=== PATIENT | female | born 1990 ===

== ENCOUNTER 2017-05-15 17:01 | Emergency (ER) | payer BC, MEDICAID ==
--- NOTE | 2017-05-15 17:38 | C.PDOC ---
History Of Present Illness 26 year old female presents to the emergency following a seizure which occurred four days ago. Came to the ER today for this seizure due to the fact that she could not find a ride and babysitting for her kids. Patient believes that it is due to increased stress at her workplace. Reports that she has had two prior seizures, one while she was in college and one during an epidural injection she received for her second . Patient denies being administered seizure medicine before, and seeks a prescription. Patient is currently 8 weeks /M1 with a recent normal ultrasound. Patient confirms nausea and vomiting prior to her seizure, stating that it is worse in her current than ever before. Admits to occasional cannabis use for nausea contorl. Patient denies abdominal pain and vaginal discharge. Time Seen by Provider: 05/15/17 17:32 Chief Complaint (Nursing): Seizure History Per: Patient History/Exam Limitations: no limitations Recent Seizure Activity Began: Days Ago: (4) Number Of Seizures: One Precipitating Factor(s): Other (stress due to work or recent related nausea and vomiting) Past Medical History Reviewed: Historical Data, Nursing Documentation, Vital Signs Vital Signs: Last Vital Signs Temp 97.0 F L 05/15/17 18:20 Pulse 62 05/15/17 18:20 Resp 20 05/15/17 18:20 BP 111/69 05/15/17 18:20 Pulse Ox 100 05/15/17 19:06 - Medical History PMH: No Chronic Diseases Surgical History: Tonsillectomy (7 yrs old) Family History: States: No Known Family Hx - Social History Hx Tobacco Use: No Hx Alcohol Use: Yes Hx Substance Use: No - Immunization History Hx Influenza Vaccination: No Hx Pneumococcal Vaccination: No Review Of Systems Except As Marked, All Systems Reviewed And Found Negative. Gastrointestinal: Positive for: Nausea, Vomiting. Negative for: Abdominal Pain Genitourinary: Negative for: Vaginal Discharge Physical Exam - Physical Exam Appears: Well, Non-toxic Head: Atraumatic, Normacephalic Eye(s): bilateral: Normal Inspection Ear(s): Bilateral: Normal Nose: Normal Oral Mucosa: Moist Tongue: Normal Appearing Neck: Normal, Supple Chest: Symmetrical Cardiovascular: Rhythm Regular Respiratory: Normal Breath Sounds Gastrointestinal/Abdominal: Normal Exam Neurological/Psych: Oriented x3, Normal Speech, Normal Cognition, Other (awake and alert) ED Course And Treatment - Laboratory Results Result Diagrams: 05/15/17 18:07 05/15/17 18:07 Lab Interpretation: Abnormal (ua wnl, tox + THC, etoh neg) Urine POC: Positive O2 Sat by Pulse Oximetry: 100 (RA) Pulse Ox Interpretation: Normal Progress Note: zofran, pepcid, IVF, tylenol PO Reevaluation Time: 18:59 Reassessment Condition: Improved Medical Decision Making Medical Decision Making: Plan: * EKG * Bloodwork * Urinalysis * IV Fluids * Pepcid 20mg IVP * Tylenol 975mg PO * Zofran 4mg PO early , hyperemesis gravidarum cannabis use in underlying seizure disorder, prob provoked by stress @ work Desires to restart seizure meds during and understands this would not guarantee seizure-free eval NOT repeated as recently assesed as wnl @ 10 wks. Disposition Doctor Will See Patient In The: Office Counseled Patient/Family Regarding: Studies Performed, Diagnosis - Disposition Referrals: Kev Torres MD [Staff Provider] - Disposition: HOME/ ROUTINE Disposition Time: 19:01 Condition: GOOD Additional Instructions: avoid stresses which may provoke seizures- as reviewed in your ED visit Call to follow-up with Dr Torres- Neurology- she is a seizure expert and will be able to best guide you. Pepcid 20 mg @ night to lower stomach acid (higher during and nausea) Zofran ODT 4 mg once every 6-8 hours as needed for nausea/vomiting diet changes to help with your chronic nausea. Return to ED or our Family Practice [facility] as needed. Prescriptions: Ondansetron ODT [Zofran ODT] 4 mg PO Q8H PRN #8 odt PRN Reason: nausea vomiting Instructions: Hyperemesis Gravidarum, Medications and , Seizures, Adult (DC) Forms: [employer] (Maori) - Clinical Impression Clinical Impression: Seizure, , Hyperemesis gravidarum - Scribe Statement The provider has reviewed the documentation as recorded by the Scribe (Jayant Landon) Provider Attestation: All medical record entries made by the Scribe were at my direction and personally dictated by me. I have reviewed the chart and agree that the record accurately reflects my personal performance of the history, physical exam, medical decision making, and the department course for this patient. I have also personally directed, reviewed, and agree with the discharge instructions and disposition.
[2017-05-15] MEDS ORDERED: Sodium Chloride 0.9% 1,000 ML IV ONE (17:48)
[2017-05-15 18:20] LABS: BASO % 0.4 % (0.0-2.0); EOS % 0.5 % (0.0-4.0); HEMOGLOBIN 12.9 g/dL (11.0-16.0); LYMPH # 1.9 K/uL (1.0-4.3); LYMPH % 21.1 % (20.0-40.0); MEAN CELL VOLUME 82.6 fL (81.0-99.0); MEAN CORPUSCULAR HEMOGLOBIN 27.4 pg (27.0-31.0); MEAN CORPUSCULAR HGB CONC 33.2 g/dL (33.0-37.0); MONO # 0.7 K/uL (0.0-0.8); MONO % 7.7 % (0.0-10.0); NEUT # 6.3 K/uL (1.8-7.0); NEUT % 70.3 % (50.0-75.0); RBC 4.72 Mil/uL (3.80-5.20); RED CELL DISTRIBUTION WIDTH 15.1 % (11.5-14.5); WHITE BLOOD COUNT 8.9 K/uL (4.8-10.8)
[2017-05-15 18:21] LABS: HCG,QUALITATIVE URINE POSITIVE (NEGATIVE)
[2017-05-15 18:25] LABS: SQUAMOUS EPITHIAL 46 /hpf (0-5); URINE BACTERIA OCC (<OCC); URINE BILIRUBIN NEGATIVE (NEGATIVE); URINE BLOOD NEGATIVE (NEGATIVE); URINE CLARITY Hazy (Clear); URINE GLUCOSE (UA) NORMAL (Normal); URINE LEUKOCYTE ESTERASE TRACE Leu/uL (Negative); URINE PROTEIN 2+ mg/dL (NEGATIVE)
[2017-05-15 18:27] LABS: URINE COLOR YELLOW (YELLOW)
[2017-05-15 18:42] LABS: BARBITURATES, UR NEGATIVE (NEGATIVE); BENZODIAZEPINES, UR NEGATIVE (NEGATIVE); OPIATES, UR NEGATIVE (NEGATIVE); PHENCYCLIDINE, UR NEGATIVE (NEGATIVE)
[2017-05-15 18:55] LABS: ALB/GLOB RATIO 1.2 (1.0-2.1); ALBUMIN 4.2 g/dL (3.5-5.0); ALT/SGPT 14 U/L (9-52); AST/SGOT 14 U/L (14-36); BLOOD UREA NITROGEN 6 mg/dL (7-17); CALCIUM 8.5 mg/dl (8.6-10.4); GFR AFRICAN-AMERICAN > 60; GFR NON-AFRICAN AMERICAN > 60
[2017-05-15 19:01] VITALS: O2SAT 100
[2017-05-15 19:48] VITALS: BP 107/58; PULSE 63; RESP 16; TEMP 98.1
== END 2017-05-15 19:49 | disposition home or self-care (01) ==
LOC: C.ER 17:01
DX: O21.0 Mild hyperemesis gravidarum (principal); O26.891 Other specified pregnancy related conditions, first trimester; Z3A.08 8 weeks gestation of pregnancy; R56.9 Unspecified convulsions
CPT/HCPCS: 80053; 81001; 84703; 85025; 96361; 96374; 99285; G0480; J7040

== ENCOUNTER 2017-12-18 08:21 | Inpatient (IN) | payer BC, MEDICAID ==
[2017-12-18] MEDS ORDERED: Lactated Ringer's 1,000 ML IV ONE (08:36)
[2017-12-18 08:38] VITALS: BMI 27.4
[2017-12-18] MEDS ORDERED: cefOXitin IV 1 gm in Dextrose 1 GM/50 ML BAG IVPB SCH (08:45)
[2017-12-18] MEDS ORDERED: cefOXitin IV 2 gm in Saline 2 GM/50 ML BAG IVPB ONE (09:01)
[2017-12-18 09:08] LABS: BASO % 0.4 % (0.0-2.0); EOS # 0.1 K/uL (0.0-0.7); HEMOGLOBIN 10.9 g/dL (11.0-16.0); LYMPH # 2.5 K/uL (1.0-4.3); MEAN CELL VOLUME 77.4 fL (81.0-99.0); MEAN CORPUSCULAR HGB CONC 32.3 g/dL (33.0-37.0); MEAN PLATELET VOLUME 9.4 fL (7.2-11.7); MONO # 0.7 K/uL (0.0-0.8); MONO % 8.5 % (0.0-10.0); NEUT # 5.4 K/uL (1.8-7.0); NEUT % 62.1 % (50.0-75.0); NRBC % 0.1 % (0.0-2.0); RBC 4.35 Mil/uL (3.80-5.20); RED CELL DISTRIBUTION WIDTH 19.4 % (11.5-14.5); WHITE BLOOD COUNT 8.8 K/uL (4.8-10.8)
[2017-12-18] MEDS ORDERED: Oxytocin 20 units in LR 2,000 ML IV ONE (09:17)
[2017-12-18] MEDS ORDERED: Oxytocin 10 Units/ml Inj ONE (09:17)
--- NOTE | 2017-12-18 09:19 | OBHP ---
Datetime: 12/18/2017 08:53 IP Adm Impression: Term, intrauterine ; No Active Labor; Ruptured Membranes IP Adm Impression Other: Prev C/S; multiparity desire permanent sterilization IP Admit Plan: Admit to unit; Initiate Section protocol Admit Comment, IP Provider: Patient seen and evaluated at 0818 hours. 27 y.o. , LMP 03/02/17, GEETA 12/28/17, EGA 38w 4d prev C/S x 2 c/o SROM approximately 0715 h ours; clear. No VB. (+) mild Ctx, pain scale 5/10 has had approx 3 since ROM. (+) AFM. : car roberta initiated with PMD, Dr. Gerardo Jones (>7); due to insurance issues, switched to clinic care at [facility] (1 visit); was scheduled for 12/19/17. Anemia, Vit D insufficiency. Treated for UTI x 1, early in P Ob: C/S x 2, both males, both at [facility]. 2016, 7lb 11oz, precipited by seizure activity S /P epidural. 2017, 9lb 2oz, elective repeat, no GDM. No other complications. 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 Denies h/o abnormal Pap, STIs, leiomyoma or ovarian cysts PMH: Vit D insufficiency, anemia PSH: Age 5 - tonsillectomy, C/S x 2; D_C x 1 NKDA No food allergies Meds: PNV, iron and Vit D 1,000IU - each once a day Soc Hx: denies tobacco, illicit drug, or EtOH use. x 3 years; together 7 years. Works as a [employer] Fam Hx: Mother age 24 - pneumonia. Father approx 40+ y.o. - Pt has no contact. no known fam h/o cancer P.E.: as above. WD in NAD. Awake, alert, oriented to time, person and place. Pleasant and cooperat carey Assessment: 27 y.o. P2012, prev C/S x 2, SROM - confirmed. Desires permanent sterilization - conse nt signed 11/07/17; reaffirmed. Reviewed R/B/C of repeat C/S and permanent sterilization; no question s offered. Consents signed, dated, witnessed and placed in chart. Category 1 tracing. Patient last at e at 0200 hours; will observe 8 hours NPO. Patient is clinically stable. Plan: 1) Admit 2) NPO 3)Admission labs, incl T_C 4) Continous EFM 5) IVFs 6) Pina 7) Abdominal prep and shave 8) Notify anesthesia 9) Notify peds 10) Mefoxin, electronics commodity manager to O.R. 11) Patient electronics commodity manager to O.R. Pelvic Type - PN: Adequate Extremities - PN: Normal Abdomen - PN: Normal Back - PN: Normal Breast - PN: Not Done Lungs - PN: Normal Heart - PN: Normal Thyroid - PN: Normal Neurologic - PN: Normal HEENT - PN: Normal General - PN: Normal Presentation-Admit: Vertex FHR - Baseline A Provider: 125 Contraction Comments Provider: irregular Comments, ACOG Physical Exam: Abdomen: Gravid. Soft. Non tender. Healed Pfannenstiel incision Perneum : wet, clear fluid seen running over perineum. nitrazine (+) All other systems reviewed and are negaitve Gestation - Est Wks by US: 38w 4d IP Hx Assessment: The History has been Reviewed and is Current EGA AdmitDate IP: 38.4 Vital Signs Provider: Reviewed IP Chief Complaint: Suspected ruptured membranes NICHD Variability Prov Fetus A: Moderate 6-25bpm NICHD Accel Fetus A IP Provider: [id number] FHR Category Provider Fetus A: Category I NICHD Decel Fetus A IP Provider: None Dilatation, Provider: 2 Effacement, Provider: 40 Station, Provider: 0 Genitourinary Exam: Normal DTRs - PN: Not Done
[2017-12-18] MEDS ORDERED: Sodium Citrate/Citric Acid 15 ml Sol PO ONE (09:30)
[2017-12-18 09:36] LABS: ALBUMIN 3.6 g/dL (3.5-5.0); ALT/SGPT 10 U/L (9-52); AST/SGOT 18 U/L (14-36); BLOOD UREA NITROGEN 7 mg/dL (7-17); CALCIUM 8.9 mg/dl (8.6-10.4); GFR NON-AFRICAN AMERICAN > 60
[2017-12-18] MEDS ORDERED: Oxycodone/Acetaminophen 5/325 mg Tab PO PRN (10:04)
[2017-12-18] MEDS ORDERED: Morphine 1 mg/ml preservative-free Inj(Duramorph) ONE (10:07)
[2017-12-18] MEDS: Lactated Ringer's 1,000 ML IV SCH ×2 (10:55→16:23)
[2017-12-18] MEDS ORDERED: DiphenhydrAMINE 50 mg/ml Inj IVP PRN (12:44)
--- NOTE | 2017-12-18 12:51 | PCM.SURG1 ---
Surgeon's Initial Post Op Note - Surgeon's Notes Surgeon: Terra Chicas MD Emergency Medical Dispatcher: Adele Leary DO, PGY-2 Type of Anesthesia: Spinal Anesthesia Administered By: Noris Smith MD Pre-Operative Diagnosis: 38 weeks gestation, previous C/S x 2, Spontaneous ROM; multiparity, desiring permanent sterilization Operative Findings: Live female , LOT, weight 7lb 2oz, 's 9/9; cord pH 7.34. Pelvic adhesions - lower uterine segmental to anterior abdominal wall. Normal, uterus; normal fallopian tubes and ovaries, bilaterally Post-Operative Diagnosis: Same; pelvic adhesions Operation Performed: Repeat LTCS; modified Filipe procedure; lysis of adhesions Specimen/Specimens Removed: Segment of fallopian tubes, bilaterally Estimated Blood Loss: EBL {In ML}: 600 (800 ml clear urine; 1600 mL LR) Blood Products Given: N/A Drains Used: No Drains Post-Op Condition: Good Date of Surgery/Procedure: 12/18/17 Time of Surgery/Procedure: 12:30
[2017-12-18 13:22] LABS: SQUAMOUS EPITHIAL < 1 /hpf (0-5); URINE BILIRUBIN NEGATIVE (NEGATIVE); URINE BLOOD NEGATIVE (NEGATIVE); URINE CLARITY Clear (Clear); URINE COLOR Yellow (YELLOW); URINE GLUCOSE (UA) NORMAL (Normal); URINE LEUKOCYTE ESTERASE NEG Leu/uL (Negative); URINE PROTEIN NEGATIVE (NEGATIVE)
--- NOTE | 2017-12-18 14:10 | OBDS ---
DELIVERY PERSONNEL Delivery Doctor: Priya Chicas MD Scrub Nurse: Ashley Reinoso Professor Of Chemical Engineering: Lauren Ureña RN Anesthesiologist: carlos Resident: Callum Leary MATERNAL INFORMATION Delivery Anesthesia: Spinal Medications in Delivery: PITOCIN, SURGICEL Estimated Blood Loss (ml): 600 Placenta Cultured: No Maternal Complications: None; Other Other Maternal Complications: H/O anemia and low Vitamin D RN Comments: RC/SECTION to a live baby girl, attended to by dr. Rutledge and Fritz Rn. 9:9 . stable, skin to skin initiated. Provider Comments: Uncomplicated repeat LTCS, lysis of adhesions, with atraumatic delivery of live f emale infant. LOT, weight 7lb 2oz, 's 9/9; cord pH 7.34. Uncomplicated modified Filipe procedur e performed for permanent sterilization. Hemostasis assured throughout the procedure. Patient tolerated procedure well. She and in stable condition. LABOR SUMMARY EDC: 12/28/2017 00:00 No. Babies in Womb: 1 Attempted: No Labor Anesthesia: None LABOR INFORMATION Reason for Induction: Not Applicable Oxytocin: N/A Group B Beta Strep: Not Done Antibiotics # of Doses: 1 Antibiotics Time of Last Dose: 12/18/1730 Steroids Given: None Reason Steroids Not Administered: Not Applicable MEMBRANES Membranes Rupture Method: Spontaneous Rupture of Membranes: 12/18/2017 07:15 Length of Rupture (hrs): 3.73 Amniotic Fluid Color: Clear Amniotic Fluid Amount: Moderate Amniotic Fluid Odor: Normal STAGES OF LABOR Stage 3 hrs: 0 Stage 3 min: 1 CSECTION DELIVERY Primary Indication: Repeat Elective Other Primary Indication: SROM CSection Urgency: Non Elective CSection Incidence: Repeat Labor: Labor Elective: Nonelective CSection Incision: Lower Uterine Transverse Sterilization Procedure: [place] Other Sterilization Procedure: Modified Filipe Uterine Closure: Single-layer closure BABY A INFORMATION Delivery Date/Time: 12/18/2017 10:59 Method of Delivery: Born in Route : No : N/A Forceps: N/A Vacuum Extraction: N/A Shoulder Dystocia : No SHOULDER DYSTOCIA BABY A Infant Delivery Date/Time: 12/18/2017 10:59 PRESENTATION/POSITION BABY A Presentation: Cephalic Cephalic Presentation: Vertex Vertex Position: Left Occipital Transverse Breech Presentation: N/A PLACENTA INFORMATION BABY A Placenta Delivery Time : 12/18/2017 11:00 Placenta Method of Delivery: Manual Removal Placenta Status: Delivered SCORES BABY A Heart Rate 1 min: >100 bpm Resp Effort 1 min: Good Cry Reflex Irritability 1 min: Cough or Sneeze or Pulls Away Muscle Tone 1 min: Active Motion Color 1 min: Body [place], Extremities Blue SCORE 1 MIN: 9 Heart Rate 5 min: >100 bpm Resp Effort 5 min: Good Cry Reflex Irritability 5 min: Cough or Sneeze or Pulls Away Muscle Tone 5 min: Active Motion Color 5 min: Body [place], Extremities Blue SCORE 5 MIN: 9 INFANT INFORMATION BABY A Gestational Age at Delivery: 38.4 Gestational Status: Term Infant Outcome : Liveborn Condition : Stable Infant Sex: Female IDENTIFICATION/MEDS BABY A ID Band Number: [id number] Sensor Number: [id number] WEIGHT/LENGTH BABY A Infant Birthweight (gms): 3220 Weight (lb): 7 Infant Weight (oz): 2 Infant Length Inches: 20.00 Infant Length cms: 50.8 CORD INFORMATION BABY A No. Cord Vessels: 3 Nuchal Cord : N/A True Knot: 0 Cord Blood Taken: Yes Infant Suction: Mouth; Nose ASSESSMENT BABY A Infant Complications: None Physical Findings at Delivery: Within Normal Limits Infant Respirations: Appears Normal Business Process Manager/ALS Called : No Infant Care By: / Alexia Pozo Rn Transferred To: Remains with Mother
[2017-12-18] MEDS: Simethicone 80 mg Chewtab PO SCH ×2 (15:22→22:16)
[2017-12-18] MEDS: cefOXitin IV 2 gm in Dextrose 2 GM/50 ML BAG IVPB SCH ×2 (16:47→17:31)
[2017-12-19] MEDS: Lactated Ringer's 1,000 ML IV SCH (00:58)
[2017-12-19] MEDS: cefOXitin IV 2 gm in Dextrose 2 GM/50 ML BAG IVPB SCH ×2 (00:59→09:14)
--- NOTE | 2017-12-19 01:55 | OP ---
PROCEDURE DATE: 12/18/2017 SURGEON: Terra Chicas MD COUNTER MOLDER: Adele Leary DO, PGY-2 TYPE OF ANESTHESIA: Spinal. ANESTHESIOLOGIST: Noris Smith MD PREOPERATIVE DIAGNOSIS: 38 weeks' gestation, previous Caesarean section x2 with spontaneous rupture of membranes; multiparity, desiring permanent sterilization. POSTOPERATIVE DIAGNOSIS: 38 weeks' gestation, previous Caesarean section x2 with spontaneous rupture of membranes; multiparity, desiring permanent sterilization; pelvic adhesions. OPERATIVE FINDINGS: Live female from the left occipital transverse position, weight 7 pounds 2 ounces and Apgars of 9 and 9 at 1 and 5 minutes, respectively. Cord pH of 7.34. Pelvic adhesions noted from the lower uterine segment to the anterior abdominal wall. Normal uterus and normal fallopian tubes and ovaries, bilaterally. OPERATION(S) PERFORMED: Repeat transverse lower uterine segment Caesarean; modified Woodland procedure; and lysis of adhesions. SPECIMENS: Portions of right and left fallopian tubes. ESTIMATED BLOOD LOSS: 600 mL URINE OUTPUT: 800 mL of clear urine. INTRAVENOUS FLUIDS: 1600 mL of Lactated Ringer's, 20 units of Pitocin were added per 1000 mL bag. BLOOD PRODUCTS GIVEN: None. COMPLICATIONS: None. PROCEDURE: The patient was taken to the operating room after having obtained informed consent for the anticipated procedure. This included a discussion of possible risks and complications including but not limited to infection requiring continued antibiotics, hemorrhage requiring blood transfusion, repair of any damage to internal organs, Caesarean hysterectomy. There was also a discussion of possible risk of failure of permanent sterilization. The patient expressed an understanding. No questions were offered. Consent forms were signed, dated, witnessed and placed in the chart. The patient had a Pina catheter inserted under sterile conditions, and prior to being escorted to the operating room, Mefoxin 2 grams were administered intravenously. In the operating room, she was placed on the operating table in a sitting position and spinal anesthesia was administered without incident. The patient was immediately repositioned to a supine position. heart rate was auscultated to 145 beats per minute. The abdomen was prepped and she was subsequently draped in the usual sterile fashion. After assuring an adequate level of anesthesia, using a scalpel, a Pfannenstiel incision was made through the previous scar. The incision was carried down through the subcutaneous tissue to the level of the fascia, which was identified and nicked in the midline. The fascial incision was then extended bilaterally also using the Bovie electrocautery. The rectus muscles were dissected off the overlying fascia. Using a scalpel, the rectus muscle was in the midline and the parietal peritoneum was entered via sharp dissection. Upon entering the abdominal cavity, surveillance of the contents revealed the findings of pelvic adhesions as described above. Using alternating cutting and clamping and securing ligated ends with chromic plain tie, lysis of adhesions was performed. The decision was made to not create the bladder flap. A transverse incision was then made on the lower uterine segment. Upon entering the uterine cavity, a small amount of clear amniotic fluid was still noted. Atraumatic delivery of the with the findings of above then ensued. Once on the operative field, the 's mouth and nose were bulb suctioned as the umbilical cord was doubly clamped and cut. The was handed off the operative field to the rpg programmer in attendance. A segment of the umbilical cord was sequestered for cord pH analysis, results as above. The placenta was then delivered by manual extraction. It was grossly normal and three vessels were present in the cord. The uterus was then exteriorized for closure. This was done in one layer using 0 Vicryl in a running interlocking fashion. There had been an extension to the lower uterine segment inferiorly and on the left of approximately 4 cm. This was also reapproximated using 0 Vicryl in a running interlocking fashion. Additional sutures using 2-0 Monocryl were placed in [id number] to assure adequate hemostasis. Attention was then directed to the posterior aspect of the uterus with normal adnexal findings as described above. Starting with the right fallopian tube in the isthmic portion, the mesosalpinx was grasped with a Anu clamp. Free ties x2 were placed using 0 plain catgut. The intervening mesosalpinx was pierced with a Metzenbaum scissors; that segment was resected and submitted to pathology for further confirmation. Adequate hemostasis was assured. A similar procedure was performed on the left fallopian tube. After assuring adequate hemostasis, copious irrigation was performed. The uterus was then returned to the abdominal cavity. The paracolic gutters were cleared of all debris. Again, hemostasis was assured on the uterine incision and Surgicel was placed along the uterine incision. The parietal peritoneum was then closed using 2-0 chromic in a running fashion and the fascia was reapproximated using 1-0 Vicryl in a running fashion using two halves. The skin was reapproximated using 3-0 Monocryl on a Jarek needle. Steri-Strips were applied and a pressure dressing was applied. The patient was repositioned in a frog-leg manner. Bimanual exploration was performed. There were no significant clots retrieved. The uterus was contracted and firm, approximately one fingerbreadth below the umbilicus. The patient was then transferred back to [facility] for recovery. The infant had been transferred to the well baby nursery. Both mother and were in stable condition. Terra Chicas MD MTDAnup
[2017-12-19] MEDS: Oxycodone/Acetaminophen 5/325 mg Tab PO PRN ×3 (05:36→22:24)
[2017-12-19 07:51] LABS: BASO % 0.3 % (0.0-2.0); EOS # 0.1 K/uL (0.0-0.7); EOS % 0.5 % (0.0-4.0); HEMOGLOBIN 10.4 g/dL (11.0-16.0); LYMPH # 1.6 K/uL (1.0-4.3); MEAN CELL VOLUME 77.3 fL (81.0-99.0); MEAN CORPUSCULAR HEMOGLOBIN 25.2 pg (27.0-31.0); MEAN CORPUSCULAR HGB CONC 32.6 g/dL (33.0-37.0); MEAN PLATELET VOLUME 9.7 fL (7.2-11.7); MONO # 0.5 K/uL (0.0-0.8); MONO % 4.6 % (0.0-10.0); NEUT # 8.3 K/uL (1.8-7.0); NEUT % 79.6 % (50.0-75.0); NRBC % 0.1 % (0.0-2.0); RBC 4.13 Mil/uL (3.80-5.20); RED CELL DISTRIBUTION WIDTH 18.7 % (11.5-14.5); WHITE BLOOD COUNT 10.4 K/uL (4.8-10.8)
[2017-12-19] MEDS: Simethicone 80 mg Chewtab PO SCH ×4 (09:15→22:23)
[2017-12-19] MEDS: Prenatal Multivit/Folic Acid/Iron Tab PO SCH (09:15)
[2017-12-20 08:26] VITALS: RESP 18
[2017-12-20] MEDS ORDERED: Bisacodyl 5mg EC Tab PO ONE (08:53)
--- NOTE | 2017-12-20 08:56 | OBPPN ---
Datetime: 12/20/2017 07:51 PP Nausea Prov: Denies PP Flatus Prov: Yes PP BM Prov: No PP Heart Prov: Normal PP Lungs Prov: Normal PP Abdomen/Uterus Prov: Normal PP Lochia Prov: Normal (Annotations: Data stored by Yodio on behalf of user) PP Extremities Prov: Normal PP C/S Incision Prov: Normal PP Comments Phys Exam Prov: Abodmen: Soft, bowel souunds presents, appropriately tender s/p C-sectio n, incision is clean, dry and intact with steri-strips in place, uterus is firm and below the umbilic us PP Impression Prov: Normal progression; Induced Hypertension PP Plan Prov: Continue present management PP Progress Note Prov: Patient was seen and examined at bedside. Patient states that she is doing we ll and has no acute issues or complaints. Patient admits passing flatus, urinating without difficulty , tolerating diet and ambulating without difficulties. Patient denies nausea, vomiting, fever, chills , bowel movement, dizziness and calf tenderness. VS: See above, WNL PE: See above, WNL Labs: 8.8>10.9/33.7<197, 10.4>10.4/31.9<207 Rubella Immune and A+ A/P: Patient is a 27 year old [id number] at 38.4 weeks, who is now via repeat LTCS repeat x2, POD #2 1. Stable, Afebrile 2. Pain is well-controlled 3. H/H stable 4. Encourage ambulation and hydration 5. Encourage breast feeding 6. Monitor for bowel function 7. Plans for D/C tomorrow All plans and management discussed with Dr. Benavidez (Annotations: Data stored by Yodio on behalf of user)
[2017-12-20] MEDS: Oxycodone/Acetaminophen 5/325 mg Tab PO PRN ×4 (09:18→21:53)
[2017-12-20] MEDS: Simethicone 80 mg Chewtab PO SCH ×4 (09:19→21:56)
[2017-12-20] MEDS: Prenatal Multivit/Folic Acid/Iron Tab PO SCH (09:19)
[2017-12-20 14:33] LABS: BASO % 0.3 % (0.0-2.0); EOS # 0.2 K/uL (0.0-0.7); EOS % 1.5 % (0.0-4.0); HEMOGLOBIN 9.8 g/dL (11.0-16.0); LYMPH # 1.9 K/uL (1.0-4.3); LYMPH % 18.3 % (20.0-40.0); MEAN CELL VOLUME 77.3 fL (81.0-99.0); MEAN CORPUSCULAR HEMOGLOBIN 25.3 pg (27.0-31.0); MEAN CORPUSCULAR HGB CONC 32.7 g/dL (33.0-37.0); MEAN PLATELET VOLUME 9.7 fL (7.2-11.7); MONO # 0.5 K/uL (0.0-0.8); MONO % 4.9 % (0.0-10.0); NEUT # 7.9 K/uL (1.8-7.0); RBC 3.85 Mil/uL (3.80-5.20); RED CELL DISTRIBUTION WIDTH 19.5 % (11.5-14.5); WHITE BLOOD COUNT 10.5 K/uL (4.8-10.8)
[2017-12-20 16:57] VITALS: O2SAT 97
[2017-12-21] MEDS: Oxycodone/Acetaminophen 5/325 mg Tab PO PRN ×2 (02:32→06:27)
[2017-12-21 08:10] VITALS: BP 110/72; PULSE 69
--- NOTE | 2017-12-21 09:07 | OBDCSUM ---
Datetime: 12/21/2017 08:28 Discharged to, Provider: Home Follow up at, Provider: Dr. Morales Disch Instr Activity: Normal activity; May be up to bathroom; May be up for meals; May Shower Disch Instr Diet: Regular Discharge Instructions, Provider: Routine instructions given Discharge Diagnosis, Provider: Term Delivered Discharge Time: 12/21/2017 09:34 Follow up in weeks, Provider: 12/26/17 Disch Referrals: None Contraception discussed, Prov: No Disch Activity Restrictions: No exercising; No lifting; No sexual activity; Nothing in vagina - Inte rcourse, tampons, douche Discharge Comment, Provider: Follow up with Dr. Morales 12/26/17 for incision check and Nothing per vagina or sexual intercourse in 6-8 weeks Continue to ambulate and hydrate, continue with breast feeding. Motrin 600mg PO Q4H prn and Percocet 1 tab PO Q6H prn for pain control continue with iron supplement and vitamins. No heavy lifting for 6-8 weeks We encourage intake of prune juice at home for induction of bowel movement Please arrange court registry officer appointment as discussed Please take care Adriane Wright DO, PGY-2 Attending Note: patient seen and evaluated by me with the Resident. I agree with the above as docu mented. Discharge Diagnosis Prov Other: 38.4 active labor Previous C/S x 2 Premature rupture of membranes delivered by RLTCS x2 with tubal ligation Lysis of adhesions Anemia
[2017-12-21] MEDS: Simethicone 80 mg Chewtab PO SCH ×2 (09:44→14:11)
[2017-12-21] MEDS: Prenatal Multivit/Folic Acid/Iron Tab PO SCH (09:44)
[2017-12-21] MEDS ORDERED: Influenza Vaccine 60 MCG/0.5 ML SYR (3 yr & up) IM ONE (17:09)
[2017-12-21 21:15] VITALS: TEMP 97
--- NOTE | 2017-12-28 00:26 | OBADHP ---
Datetime: 12/18/2017 08:53 IP Adm Impression Other: Prev C/S; multiparity desire permanent sterilization Admit Comment, IP Provider: Patient seen and evaluated at 0818 hours. 27 y.o. , LMP 03/02/17, GEETA 12/28/17, EGA 38w 4d prev C/S x 2 c/o SROM approximately 0715 h ours; clear. No VB. (+) mild Ctx, pain scale 5/10 has had approx 3 since ROM. (+) AFM. : car roberta initiated with PMD, Dr. Gerardo Jones (>7); due to insurance issues, switched to clinic care at [facility] (1 visit); was scheduled for 12/19/17. Anemia, Vit D insufficiency. Treated for UTI x 1, early in P Ob: C/S x 2, both males, both at [facility], [place]. 2016, 7lb 11oz, precipited by seizure activity S /P epidural. 2017, 9lb 2oz, elective repeat, no GDM. No other complications. 2010, VTOP, 7 weeks, w ith D/_; no complications P [employer]: 12 x monthly x 7. Denies h/o abnormal Pap, STIs, leiomyoma or ovarian cysts PMH: Vit D insufficiency, anemia PSH: Age 5 - tonsillectomy, C/S x 2; D_C x 1 NKDA No food allergies Meds: PNV, iron and Vit D 1,000IU - each once a day Soc Hx: denies tobacco, illicit drug, or EtOH use. x 3 years; together 7 years. 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 Father approx 40+ y.o. - Pt has no contact. no known fam h/o cancer P.E.: as above. WD in NAD. Awake, alert, oriented to time, person and place. Pleasant and cooperat carey Assessment: 27 y.o. P2012, prev C/S x 2, SROM - confirmed. Desires permanent sterilization - conse nt signed 9/17/18; reaffirmed. Reviewed R/B/C of repeat C/S and permanent sterilization; no question s offered. Consents signed, dated, witnessed and placed in chart. Category 1 tracing. Patient last at e at 0200 hours; will observe 8 hours NPO. Patient is clinically stable. Plan: 1) Admit 2) NPO 3)Admission labs, incl T_C 4) Continous EFM 5) IVFs 6) Pina 7) Abdominal prep and shave 8) Notify anesthesia 9) Notify peds 10) Mefoxin, international controller to O.R. 11) Patient international controller to O.R. Pelvic Type - PN: Adequate Extremities - PN: Normal Abdomen - PN: Normal Back - PN: Normal Breast - PN: Not Done Lungs - PN: Normal Heart - PN: Normal Thyroid - PN: Normal Neurologic - PN: Normal HEENT - PN: Normal General - PN: Normal Presentation-Admit: Vertex FHR - Baseline A Provider: 125 Contraction Comments Provider: irregular Comments, ACOG Physical Exam: Abdomen: Gravid. Soft. Non tender. Healed Pfannenstiel incision Perneum : wet, clear fluid seen running over perineum. nitrazine (+) All other systems reviewed and are negaitve Gestation - Est Wks by US: 38w 4d IP Hx Assessment: The History has been Reviewed and is Current Vital Signs Provider: Reviewed IP Chief Complaint: Suspected ruptured membranes NICHD Variability Prov Fetus A: Moderate 6-25bpm NICHD Accel Fetus A IP Provider: [id number] FHR Category Provider Fetus A: Category I NICHD Decel Fetus A IP Provider: None Dilatation, Provider: 2 Effacement, Provider: 40 Station, Provider: 0 Genitourinary Exam: Normal DTRs - PN: Not Done EGA AdmitDate IP: 38.4 IP Adm Impression: Term, intrauterine ; No Active Labor; Ruptured Membranes IP Admit Plan: Admit to unit; Initiate Section protocol
== END 2017-12-21 17:14 | disposition home or self-care (01) | DRG 540 ==
LOC: C.EROB 08:21 → C.4D 08:24 → C.4M 15:00
PROVIDERS: ADMIT Obstetrics & Gynecology; ATTEND Obstetrics & Gynecology
PROC: 10D00Z1 Extraction of Products of Conception, Low, Open Approach (ICD-10-PCS; principal; 2017-12-18)
PROC: 0UL70ZZ Occlusion of Bilateral Fallopian Tubes, Open Approach (ICD-10-PCS; 2017-12-18)
PROC: 0DNW0ZZ Release Peritoneum, Open Approach (ICD-10-PCS; 2017-12-18)
DX: O99.02 Anemia complicating childbirth (principal); E55.9 Vitamin D deficiency, unspecified; O75.89 Other specified complications of labor and delivery; O34.219 Maternal care for unspecified type scar from previous cesarean delivery; O99.89 Other specified diseases and conditions complicating pregnancy, childbirth and the puerperium; N73.6 Female pelvic peritoneal adhesions (postinfective); Z30.2 Encounter for sterilization; Z37.0 Single live birth; Z3A.38 38 weeks gestation of pregnancy